=== PATIENT | male | born 1990 | race Caucasian/White ===

== ENCOUNTER 2023-03-11 14:28 | Emergency (ER) | payer BC, MEDICAID, OTHER ==
[~2023-03-11] VITALS: Ht 190.5 cm; Wt 103.8 kg
[2023-03-11] MEDS ORDERED: IBUP1TAB5 PO (21:15)
[2023-03-11] MEDS ORDERED: CYCL-839 PO (21:15)
[2023-03-11] MEDS ORDERED: KETOROLAC TROMETH 60MG/2ML VIAL IM ONE (21:15)
[2023-03-11 22:35] VITALS: BP 127/74; PULSE 78; RESP 20; TEMP 98
[2023-03-11 22:36] VITALS: O2SAT 97
== END 2023-03-11 22:35 | disposition home or self-care (01) ==
LOC: ER 14:28
DX: S83.8X1A Sprain of other specified parts of right knee, initial encounter (principal); S93.491A Sprain of other ligament of right ankle, initial encounter; Z79.899 Other long term (current) drug therapy; Z79.1 Long term (current) use of non-steroidal anti-inflammatories (NSAID); W22.8XXA Striking against or struck by other objects, initial encounter; Y93.I9 Activity, other involving external motion; Y92.89 Other specified places as the place of occurrence of the external cause; Y99.8 Other external cause status
CPT/HCPCS: 73562; 73610; 73630; 96372; 99284; J1885